=== PATIENT | male | born 1960 | race Caucasian/White ===

== ENCOUNTER → 2021-07-29 | Outpatient (CLI) | payer BC, OTHER ==
--- NOTE | 2021-07-29 17:23 | REPVR ---
PROCEDURE INFORMATION: Exam: CT Maxillofacial Without Contrast, Sinus Exam date and time: 07/29/2021 1:47 PM Age: 61 years old Clinical indication: Nasal congestion; Additional info: Chronic pansinusitis TECHNIQUE: Imaging protocol: CT Maxillofacial without contrast. Focus on the sinuses. Radiation optimization: All CT scans at this facility use at least one of these dose optimization techniques: automated exposure control; mA and/or kV adjustment per patient size (includes targeted exams where dose is matched to clinical indication); or iterative reconstruction. COMPARISON: No relevant prior studies available. FINDINGS: Frontal sinuses: Normal. No air-fluid levels. Ethmoid air cells: Normal. No air-fluid levels. Sphenoid sinuses: Normal. No air-fluid levels. Maxillary sinuses: Polypoid appearing soft tissue lesions within the left maxillary sinus. Chronic postoperative changes compatible with left maxillary antrostomy. Right maxillary sinus is unremarkable. Nasal cavity/Septum: Polypoid appearing soft tissue lesions within the posterior left nasal cavity. Orbital cavity: Orbits are normal. Globes are unremarkable. Bones/joints: Unremarkable. Soft tissues: Unremarkable. 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 Recommend ENT surgical consultation. Electronically signed by: George Hansen On 07/29/2021 17:22:49 PM
== END ==
LOC: M PLAIMG 13:24
PROVIDERS: ATTEND Otolaryngology
DX: J32.4 Chronic pansinusitis (principal)

== ENCOUNTER → 2021-09-29 | Outpatient (CLI) | payer BC, OTHER ==
[~2021-09-29] MED LIST: ASPI81TA26 PO; BUSP1TAB PO; DILT12SRCA PO; DULO1CAP6 PO; FENO145T7 PO; MECL-86 PO; OMEP40CA5 PO; TAMS1CAP17 PO; TRAZ-252 PO
== END ==
LOC: M LABSMTC 10:10
PROVIDERS: ATTEND Anesthesiology
DX: Z01.812 Encounter for preprocedural laboratory examination (principal); Z11.52 Encounter for screening for COVID-19

== ENCOUNTER → 2021-10-01 | Outpatient (CLI) | payer BC, OTHER ==
[~2021-10-01] MED LIST changes: +OMEP-221 PO; -OMEP40CA5 PO
== END ==
LOC: M LABSMTC 16:20
PROVIDERS: ATTEND Anesthesiology
DX: Z20.822 Contact with and (suspected) exposure to COVID-19 (principal)

== ENCOUNTER 2021-10-02 06:09 | Day surgery (SDC) | payer BC, OTHER ==
[~2021-10-02] VITALS: Ht 180.3 cm; Wt 103.0 kg
[~2021-10-02 06:09] MED LIST changes: +LIDOCAINE 1% MDV 20ML VIAL SQ PRN; +LR 1,000 ML IV ONE
[2021-10-02] MEDS ORDERED: METHYLENE BLUE 0.5% (5MG/ML) 10 ML AMP (PROVAYBLUE) As Ordered ONE (07:09)
[2021-10-02] MEDS ORDERED: EPINEPHrine 1MG/ML INJ 30ML MD-VIAL As Ordered ONE (07:09)
[2021-10-02] MEDS ORDERED: LIDOCAINE W/EPINEPHRINE 1% 20ML VIAL As Ordered ONE (07:09)
[2021-10-02] MEDS ORDERED: MIDAZOLAM INJ 2MG/2ML VIAL (J2250 PER 1MG) As Ordered ONE (07:11)
[2021-10-02] MEDS ORDERED: propofoL 200 MG/20 ML VIAL As Ordered ONE ×2 (07:11→07:56)
[2021-10-02] MEDS ORDERED: fentaNYL 100 MCG/2 ML INJECTION (J3010) As Ordered ONE ×2 (07:11→07:49)
[2021-10-02] MEDS ORDERED: LIDOCAINE 2% 100MG/5ML SDV (FOR ANES.) As Ordered ONE (07:11)
[2021-10-02] MEDS ORDERED: ROCURONIUM BROMIDE 50 MG/5 ML VIAL As Ordered ONE (07:11)
[2021-10-02] MEDS ORDERED: ONDANSETRON 4MG/2ML VIAL As Ordered ONE (07:11)
[2021-10-02] MEDS ORDERED: dexameTHASONE 4 MG/ML 1ML VIAL (J1100 PER 1MG) As Ordered ONE (07:11)
[2021-10-02] MEDS ORDERED: LACRILUBE (AKWA TEARS) OPHTH OINT 3.5 GM As Ordered ONE (07:19)
[2021-10-02] MEDS ORDERED: ACETAMINOPHEN 1000MG 100ML IV BTL (OFIRMEV) (J0131 PER 10MG) As Ordered ONE (07:29)
[2021-10-02] MEDS ORDERED: SUGAMMADEX SODIUM 500 MG/5 ML VIAL (BRIDION) As Ordered ONE (07:56)
--- NOTE | 2021-10-02 08:02 | ECGEPIP ---
[facility] Test Date: 2021-10-02 Pat Name: KIMBERLY BROWN Department: Room: - Gender: Male [employer] Consultant: CLAIR : [id number] Requested By: Reji Pedraza Order Number: [id number] Reading MD: Zay Concepcion Measurements Intervals [place] Rate: 79 P: 32 TN: 144 QRS: -6 QRSD: 90 T: 27 QT: 376 QTc: 431 Interpretive Statements Normal sinus rhythm Nonspecific T wave abnormality Comparison tracing not on file Electronically Signed on 10-02-2021 8:02:44 EST by Zay Concepcion
[2021-10-02] MEDS ORDERED: LR 1,000 ML IV SCH ×2 (08:45→08:50)
[2021-10-02] MEDS ORDERED: oxyCODONE 5MG TAB PO PRN (08:50)
[2021-10-02] MEDS ORDERED: ONDANSETRON 4MG/2ML VIAL IV PRN (08:50)
[2021-10-02] MEDS ORDERED: fentaNYL 100 MCG/2 ML INJECTION (J3010) IV PRN (08:50)
--- NOTE | 2021-10-02 09:01 | RO ---
OPERATIVE NOTE DATE OF OPERATION: 10/02/2021 PREOPERATIVE DIAGNOSIS: Left oral choanal polyp. POSTOPERATIVE DIAGNOSIS: Left oral choanal polyp. PROCEDURE: Removal of left antrochoanal polyp and antrostomy. SURGEON: Carolina Castaneda MD MARINE ERECTOR: ANESTHESIA: ESTIMATED BLOOD LOSS: 50 mL. DESCRIPTION OF PROCEDURE: There was a large polyp in the nose on the left side. I removed it with microdebrider. I opened into the sinus and I removed the polyp from inside the sinus which arose from the posterior wall of the maxillary sinus. There was some bleeding and infection. I did cauterize areas that were bleeding at the end after removal. The patient tolerated the procedure well. The patient was extubated and transferred to the recovery room in excellent condition.
[2021-10-02 10:23] VITALS: BP 134/86
== END 2021-10-02 10:30 | disposition home or self-care (01) ==
LOC: M SDC 06:09
PROVIDERS: ATTEND Otolaryngology
DX: J33.0 Polyp of nasal cavity (principal); K21.9 Gastro-esophageal reflux disease without esophagitis; E78.5 Hyperlipidemia, unspecified; L40.9 Psoriasis, unspecified; Z79.82 Long term (current) use of aspirin; Z79.899 Other long term (current) drug therapy
CPT/HCPCS: 31267; 88304; 93005; J0131; J1100; J2250; J2405; J3010; Q9968

== ENCOUNTER → 2022-06-16 | Outpatient (REF) | payer BC, OTHER ==
[~2022-06-16] MED LIST changes: -LIDOCAINE 1% MDV 20ML VIAL SQ PRN; -LR 1,000 ML IV ONE; -OMEP-221 PO; +OMEP40CA5 PO
[2022-06-16 20:34] LABS: APPEARANCE, URINE MANUAL HAZY (CLEAR)
[2022-06-16 20:35] LABS: COLOR, URINE MANUAL AMBER (YELLOW)
[2022-06-16 20:36] LABS: BILIRUBIN, URINE MANUAL NEGATIVE (NEGATIVE); BLOOD URINE MANUAL POSITIVE (NEGATIVE); GLUCOSE, URINE (UA) MANUAL NEGATIVE (NEGATIVE); KETONE, URINE MANUAL NEGATIVE (NEGATIVE); LEUKOCYTE ESTERASE, URINE MAN POSITIVE (NEGATIVE); NITRITE, URINE MANUAL POSITIVE (NEGATIVE); PROTEIN, URINE MANUAL TRACE mg/dL (NEGATIVE); SPECIFIC GRAVITY,URINE MANUAL 1.025 (1.002-1.035); UROBILINOGEN, URINE MANUAL 1 MG mg/dl (NORMAL)
[2022-06-16 21:11] LABS: BACTERIA, URINE MOD AMOUNT; HYALINE CAST, URINE NONE SEEN /lpf (0-1); SQUAMOUS EPITHELIAL CELL URINE SMALL AMOUNT /hpf (SMALL AMT); WBC, URINE 20-30 /hpf (0-3)
[2022-06-16 21:12] LABS: AMORPHOUS SEDIMENT, URINE LARGE AMOUNT (NEGATIVE)
== END ==
LOC: M SMT 16:52
PROVIDERS: ATTEND Physician Assistant
DX: R30.0 Dysuria (principal)

== ENCOUNTER → 2022-06-28 | Outpatient (CLI) | payer BC, OTHER | LOC: M LABSMTC 10:44 | PROVIDERS: ATTEND Anesthesiology | DX: Z20.828 Contact with and (suspected) exposure to other viral communicable diseases (principal); Z11.59 Encounter for screening for other viral diseases ==

== ENCOUNTER 2022-07-03 08:17 | Day surgery (SDC) | payer BC, OTHER ==
[~2022-07-03] VITALS: Ht 180.3 cm; Wt 95.3 kg
[~2022-07-03 08:17] MED LIST changes: +ceFAZolin SOD 2 GM in IV 1 EA IV ONE
[2022-07-03] MEDS ORDERED: LR 1,000 ML IV SCH ×2 (09:05→11:15)
[2022-07-03] MEDS ORDERED: MIDAZOLAM INJ 2MG/2ML VIAL (J2250 PER 1MG) As Ordered ONE (09:23)
[2022-07-03] MEDS ORDERED: fentaNYL 250 MCG/5 ML INJECTION As Ordered ONE (09:23)
[2022-07-03] MEDS ORDERED: BUPIVACAINE HCL 0.25% 30ML VIAL As Ordered ONE (09:34)
[2022-07-03] MEDS ORDERED: LIDOCAINE 1% SDV 30ML VIAL As Ordered ONE (09:34)
[2022-07-03] MEDS ORDERED: BACITRACIN OINTMENT 30GM TUBE As Ordered ONE (09:34)
[2022-07-03] MEDS ORDERED: ACETAMINOPHEN 1000MG 100ML IV BTL (OFIRMEV) (J0131 PER 10MG) As Ordered ONE (09:39)
[2022-07-03] MEDS ORDERED: dexameTHASONE 4 MG/ML 1ML VIAL (J1100 PER 1MG) As Ordered ONE (09:39)
[2022-07-03] MEDS ORDERED: LIDOCAINE 2% 100MG/5ML SDV (FOR ANES.) As Ordered ONE (09:40)
[2022-07-03] MEDS ORDERED: propofoL 200 MG/20 ML VIAL As Ordered ONE (09:40)
[2022-07-03] MEDS ORDERED: METOCLOPRAMIDE INJ 10MG/2ML VIAL (J2765 PER 1) As Ordered ONE (10:13)
[2022-07-03] MEDS ORDERED: ONDANSETRON 4MG 2ML VIAL As Ordered ONE (11:05)
[2022-07-03] MEDS ORDERED: fentaNYL 100 MCG/2 ML INJECTION IV PRN (11:15)
[2022-07-03] MEDS ORDERED: HYDROMORPHONE HCL 0.5 MG/ 0.5 ML SYRINGE (J1170 PER 1) IV PRN (11:15)
[2022-07-03] MEDS ORDERED: ONDANSETRON 4MG 2ML VIAL IV PRN (11:15)
[2022-07-03] MEDS ORDERED: OXYC1TAB23 PO (11:35)
[2022-07-03] MEDS: oxyCODONE 5MG TAB PO PRN ×2 (11:44→12:17)
[2022-07-03 12:30] VITALS: BP 157/92
[2022-07-03] MEDS ORDERED: PERCOCET 5MG/325MG TAB PO PRN (12:40)
== END 2022-07-03 13:00 | disposition home or self-care (01) ==
LOC: M SDC 08:17
PROVIDERS: ATTEND Urology
DX: N50.3 Cyst of epididymis (principal); R51.9 Headache, unspecified; Z79.899 Other long term (current) drug therapy; F41.9 Anxiety disorder, unspecified; F32.A Depression, unspecified; E78.5 Hyperlipidemia, unspecified; K21.9 Gastro-esophageal reflux disease without esophagitis; L40.9 Psoriasis, unspecified; Z87.891 Personal history of nicotine dependence
CPT/HCPCS: 54830; 88305; J0131; J0690; J1100; J2250; J2405; J2765; J3010

== ENCOUNTER 2022-07-13 15:44 | Emergency (ER) | payer BC, OTHER ==
[~2022-07-13] VITALS: Ht 180.3 cm; Wt 94.5 kg
[~2022-07-13 15:44] MED LIST changes: +OXYC1TAB23 PO; -ceFAZolin SOD 2 GM in IV 1 EA IV ONE
[2022-07-13 18:27] LABS: BASO # 0.2 10^3/uL (0.0-0.2); BASO % 1.5 % (0.0-1.0); EOS % 9.7 % (0.0-3.0); HEMATOCRIT 43.3 % (42.0-52.0); HEMOGLOBIN 14.5 g/dl (13.5-17.5); LYMPH # 2.3 10^3/uL (1.5-5.0); LYMPH % 22.4 % (24.0-44.0); MEAN CORPUSCULAR HEMOGLOBIN 30.3 pg (27.0-33.0); MEAN CORPUSCULAR HGB CONC 33.5 g/dl (32.0-36.5); MEAN CORPUSCULAR VOLUME 90.4 fl (80.0-96.0); MONO # 0.8 10^3/uL (0.0-0.8); MONO % 7.4 % (2.0-8.0); NEUTROPHILS # 5.9 10^3/uL (1.5-8.5); NEUTROPHILS % 57.6 % (36.0-66.0); PLATELET COUNT, AUTOMATED 241 10^3/uL (150-450); RED BLOOD COUNT 4.79 10^6/uL (4.30-6.10); WHITE BLOOD COUNT 10.2 10^3/uL (4.0-10.0)
[2022-07-13] MEDS ORDERED: KETOROLAC 30 MG/ML 1ML VIAL IV ONE (18:50)
[2022-07-13] MEDS ORDERED: ISOVUE-370 76% 100ML VIAL As Ordered ONE (18:51)
[2022-07-13 18:55] LABS: ALBUMIN 3.8 GM/DL (3.2-5.2); ALT/SGPT 39 U/L (12-78); BILIRUBIN,DIRECT 0.2 MG/DL (0.0-0.2); BILIRUBIN,TOTAL 0.5 MG/DL (0.2-1.0); BLOOD UREA NITROGEN 15 MG/DL (7-18); CALCIUM LEVEL 9.4 MG/DL (8.8-10.2); CARBON DIOXIDE LEVEL 24 MEQ/L (21-32); CHLORIDE LEVEL 109 MEQ/L (98-107); CREATININE FOR GFR 0.84 MG/DL (0.70-1.30); GLOMERULAR FILTRATION RATE > 60.0 (>49); GLUCOSE, FASTING 114 MG/DL (70-100); LIPASE 114 U/L (73-393); POTASSIUM SERUM 4.3 MEQ/L (3.5-5.1); SODIUM LEVEL 140 MEQ/L (136-145)
[2022-07-13 19:01] LABS: CPK CREATINE PHOSPHOKINASE 107 U/L (39-308)
[2022-07-13] MEDS ORDERED: IPRATROPIUM 0.5MG/ALBUTEROL 2.5MG INH SOL UD 3ML (DUONEB) NEB ONE (20:20)
[2022-07-13] MEDS ORDERED: SULF1TAB23 PO (20:46)
[2022-07-13] MEDS ORDERED: BACTRIM 160MG/800MG DS TAB PO ONE (20:50)
[2022-07-13] MEDS ORDERED: PROA1AER2 INH (20:51)
[2022-07-13 20:54] VITALS: BP 130/86
== END 2022-07-13 21:10 | disposition home or self-care (01) ==
LOC: M ED 15:44
DX: N50.812 Left testicular pain (principal); R16.1 Splenomegaly, not elsewhere classified; B34.8 Other viral infections of unspecified site; R91.1 Solitary pulmonary nodule; N39.0 Urinary tract infection, site not specified; I49.3 Ventricular premature depolarization; I10 Essential (primary) hypertension; K21.9 Gastro-esophageal reflux disease without esophagitis; E78.5 Hyperlipidemia, unspecified; Z90.49 Acquired absence of other specified parts of digestive tract; Z88.5 Allergy status to narcotic agent; Z79.51 Long term (current) use of inhaled steroids; Z79.899 Other long term (current) drug therapy
CPT/HCPCS: 71046; 74177; 76870; 80047; 80048; 80076; 81000; 81015; 82550; 83605; 83690; 84484; 85025; 87040; 87088; 87186; 87486; 87581; 87633; 87798; 93005; 94640; 96374; 99284; J1885; Q9967